=== PATIENT | male | born 1985 | race African-American/Black ===

== ENCOUNTER 2025-07-04 12:26 | Emergency (ER) | payer OTHER ==
[~2025-07-04] VITALS: Ht 177.8 cm; Wt 82.5 kg
[2025-07-04 12:43] VITALS: TEMP 97.9
[2025-07-04 13:13] LABS: BASO # 0.1 10^3/uL (0.0-0.2); BASO % 1.1 % (0.0-1.0); EOS # 0.2 10^3/uL (0.0-0.5); EOS % 3.2 % (0.0-3.0); LYMPH # 2.0 10^3/uL (1.5-5.0); LYMPH % 36.5 % (24.0-44.0); MONO # 0.4 10^3/uL (0.0-0.8); MONO % 6.8 % (2.0-8.0); NEUTROPHILS # 2.9 10^3/uL (1.5-8.5); NEUTROPHILS % 52.2 % (36.0-66.0); PLATELET COUNT, AUTOMATED 317 10^3/uL (150-450)
[2025-07-04 13:31] LABS: INR 0.91
[2025-07-04 13:44] LABS: CPK CREATINE PHOSPHOKINASE 108 U/L (46-171)
[2025-07-04 13:45] LABS: ALT/SGPT 14 U/L (7.0-40); AST/SGOT 17 U/L (<34); CALCIUM LEVEL 9.5 MG/DL (8.5-10.1); CARBON DIOXIDE LEVEL 31 MMOL/L (20-31); CHLORIDE LEVEL 103 MMOL/L (98-107); CK-MB VALUE MASS < 1.0 NG/ML (<3.6); CREATININE FOR GFR 1.08 MG/DL (0.70-1.30); GLOMERULAR FILTRATION RATE > 90.0 (>60); POTASSIUM SERUM 4.3 MMOL/L (3.5-5.1); SODIUM LEVEL 141 MMOL/L (136-145)
[2025-07-04 13:46] LABS: FREE T4 1.00 NG/DL (0.89-1.76)
[2025-07-04 17:30] LABS: CK-MB VALUE MASS < 1.0 NG/ML (<3.6)
[2025-07-04 17:37] LABS: CPK CREATINE PHOSPHOKINASE 97 U/L (46-171)
[2025-07-04 17:49] VITALS: BP 150/94; O2SAT 100
== END 2025-07-04 17:53 | disposition home or self-care (01) ==
LOC: M ED 12:26 → EDBD 12:26 → M ED 17:53
DX: R07.89 Other chest pain (principal)